=== PATIENT | female | born 1940 | race Caucasian/White ===

== ENCOUNTER 2019-01-28 08:37 | Day surgery (SDC) | payer MEDICARE, BC ==
[2019-01-28] VITALS (8 sets, daily range): BP systolic 112–138; BP diastolic 64–84
[~2019-01-28] VITALS: Ht 172.7 cm; Wt 83.7 kg
[2019-01-28] MEDS ORDERED: normal saline 1000ml 1,000 ML IV PRN (09:05)
[2019-01-28] MEDS ORDERED: BENA10TA74 PO (09:25)
[2019-01-28] MEDS ORDERED: POTA99TA21 (09:25)
[2019-01-28] MEDS ORDERED: ALLO100T PO (09:25)
[2019-01-28] MEDS ORDERED: LEVO137T24 PO (09:25)
[2019-01-28] MEDS ORDERED: CHOL400C8 PO (09:25)
[2019-01-28 09:35] LABS: BASOPHILS # (AUTO) 0.1 X10'3 (0-0.2); BASOPHILS % (AUTO) 0.9 % (0-1); EOSINOPHILS % (AUTO) 0.5 % (0-6); HEMATOCRIT 39.4 % (35.0-45.0); HEMOGLOBIN 13.1 g/dl (12.0-16.0); LYMPHOCYTES # (AUTO) 1.7 X10'3 (1.1-4.8); LYMPHOCYTES % (AUTO) 24.5 % (21-51); MEAN CORPUSCULAR HEMOGLOBIN 31.2 PG (27.0-31.0); MEAN CORPUSCULAR HGB CONC 33.3 g/dL (33.0-36.5); MEAN CORPUSCULAR VOLUME 93.6 FL (78-98); MEAN PLATELET VOLUME 8.4 FL (7.4-10.4); MONOCYTES # (AUTO) 0.5 X10'3 (0-0.9); MONOCYTES % (AUTO) 7.2 % (2-12); NEUTROPHILS # (AUTO) 4.6 X10'3 (1.8-7.7); NEUTROPHILS % (AUTO) 66.9 % (42-75); PLATELET COUNT 208 X10'3 (140-440); RED BLOOD COUNT 4.21 X10'6 (4.20-5.60); RED CELL DISTRIBUTION WIDTH 14.5 % (11.5-14.5); WHITE BLOOD COUNT 6.9 X10'3 (4.5-11.0)
[2019-01-28 09:42] LABS: ALBUMIN 2.8 G/DL (3.4-5.0); ANION GAP 8 (8-16); BLOOD UREA NITROGEN 9 MG/DL (7-18); BUN/CREATININE RATIO 9.8 (6.6-38.0); CALCIUM 9.3 MG/DL (8.5-10.1); CHLORIDE 108 MMOL/L (99-107); CREATININE 0.92 MG/DL (0.40-0.90); GLUCOSE 104 MG/DL (70-104); POTASSIUM 3.3 MMOL/L (3.5-5.1); SODIUM 142 MMOL/L (135-145); TOTAL CARBON DIOXIDE 25.9 MMOL/L (24-32); eGFR 59 ML/MIN
[2019-01-28] MEDS ORDERED: heparin 1,000unit/ml 10ml vial 10 ML ONE (11:05)
[2019-01-28] MEDS ORDERED: heparin 1,000 UNITS/NS 500ml 500 ML ONE ×2 (11:06→13:21)
[2019-01-28] MEDS ORDERED: iohexol 300mg/ml 100ml inj. ONE (11:06)
[2019-01-28] MEDS ORDERED: fentaNYL/PF 50MCG/1 ML 2ML syringe ONE ×5 (11:06→14:07)
[2019-01-28] MEDS ORDERED: midazolam 2 mg/2 ml injection ONE ×5 (11:06→14:07)
[2019-01-28] MEDS ORDERED: nitroGLYCERIN-Tridil 50MG/D5W 250 ML IV ONE (12:41)
[2019-01-28] MEDS ORDERED: verapamil 2.5 mg/ml inj IV ONE (12:43)
[2019-01-28] MEDS ORDERED: normal saline 1000ml 1,000 ML IV SCH (14:31)
== END 2019-01-28 17:15 | disposition home or self-care (01) ==
LOC: SSTAY O 08:37
PROVIDERS: ATTEND Radiology Vascular & Interventional Radiology
DX: K55.1 Chronic vascular disorders of intestine (principal); R10.9 Unspecified abdominal pain; D64.9 Anemia, unspecified; Z79.899 Other long term (current) drug therapy; Z90.710 Acquired absence of both cervix and uterus; Z98.890 Other specified postprocedural states; Z87.891 Personal history of nicotine dependence; R11.0 Nausea
CPT/HCPCS: 36245; 36415; 37184; 75726; 80048; 85025; 85610; C1724; C1760; C1769; C1894; G0269; J1644; J2250; J3010; J7030; Q9967; 99152; 99153; A6213; J3490

== ENCOUNTER 2019-02-04 20:16 | Inpatient (IN) | payer MEDICARE, BC ==
[~2019-02-04] VITALS: Ht 172.7 cm; Wt 84.1 kg
[~2019-02-04 20:16] MED LIST: ALLO100T PO; BENA10TA74 PO; CHOL400C8 PO; LEVO137T24 PO; POTA99TA21
[2019-02-04 20:51] LABS: UA COLLECTION TYPE CLN CATCH MIDSTREAM
[2019-02-04 20:52] LABS: CLARITY,URINE SLIGHTLY CLOUDY (Clear); COLOR,URINE YELLOW (Yellow); GLUCOSE, URINE NEGATIVE (Neg); KETONES,URINE TRACE mg/dl (Neg); LEUKOCYTE ESTERASE ,URINE LARGE (Neg); NITRITES, URINE POSITIVE (Neg); OCCULT BLOOD,URINE NEGATIVE (Neg); PH,URINE 6.5 (4.8-8.0); PROTEIN,URINE NEGATIVE (Neg)
[2019-02-04 20:59] LABS: BACTERIA,URINE 4+ /HPF (Neg); MUCUS STRANDS NONE SEEN /LPF (Neg); RBC,URINE NONE SEEN /HPF (0-2); SQUAMOUS EPITHELIAL CELL,UR FEW /LPF (FEW); WBC,URINE 20-30 /HPF (0-4)
[2019-02-04] MEDS ORDERED: iohexol 350MG/ML 100ml bottle IV ONE (21:22)
[2019-02-04 21:41] LABS: BASOPHILS # (AUTO) 0.1 X10'3 (0-0.2); BASOPHILS % (AUTO) 0.6 % (0-1); EOSINOPHILS % (AUTO) 0.1 % (0-6); HEMATOCRIT 41.5 % (35.0-45.0); LYMPHOCYTES # (AUTO) 2.8 X10'3 (1.1-4.8); LYMPHOCYTES % (AUTO) 19.6 % (21-51); MEAN CORPUSCULAR HEMOGLOBIN 31.3 PG (27.0-31.0); MEAN CORPUSCULAR HGB CONC 33.7 g/dL (33.0-36.5); MEAN CORPUSCULAR VOLUME 92.8 FL (78-98); MEAN PLATELET VOLUME 8.6 FL (7.4-10.4); MONOCYTES # (AUTO) 0.7 X10'3 (0-0.9); MONOCYTES % (AUTO) 5.3 % (2-12); NEUTROPHILS # (AUTO) 10.5 X10'3 (1.8-7.7); NEUTROPHILS % (AUTO) 74.4 % (42-75); PLATELET COUNT 284 X10'3 (140-440); RED BLOOD COUNT 4.47 X10'6 (4.20-5.60); RED CELL DISTRIBUTION WIDTH 14.8 % (11.5-14.5); WHITE BLOOD COUNT 14.1 X10'3 (4.5-11.0)
[2019-02-04 21:53] LABS: ALANINE AMINOTRANSFERASE 18 U/L (12-78); ALBUMIN 3.1 G/DL (3.4-5.0); ALBUMIN/GLOBULIN RATIO 0.7 (1.1-1.5); ALKALINE PHOSPHATASE 151 IU/L (46-116); ANION GAP 12 (8-16); ASPARTATE AMINO TRANSFERASE 9 U/L (10-37); BILIRUBIN,TOTAL 0.7 MG/DL (0.1-1.0); BLOOD UREA NITROGEN 9 MG/DL (7-18); CALCIUM 10.1 MG/DL (8.5-10.1); CHLORIDE 103 MMOL/L (99-107); CREATININE 1.13 MG/DL (0.40-0.90); GLUCOSE 145 MG/DL (70-104); LIPASE < 50 U/L (73-393); POTASSIUM 3.3 MMOL/L (3.5-5.1); SODIUM 140 MMOL/L (135-145); TOTAL CARBON DIOXIDE 24.6 MMOL/L (24-32); TOTAL PROTEIN 7.3 G/DL (6.4-8.2); eGFR 46 ML/MIN
[2019-02-04] MEDS ORDERED: normal saline 1000ML IV soln IVB ONE (22:30)
[2019-02-04] MEDS ORDERED: mag hydrox/Alum hydrox/simeth 30ml oral suspension PO PRN (23:35)
[2019-02-04] MEDS ORDERED: acetaminophen 325mg tablet PO PRN (23:35)
[2019-02-04] MEDS ORDERED: ondansetron/PF 4mg/2ml inj IV PRN (23:35)
[2019-02-04] MEDS ORDERED: magnesium hydroxide 30ml (MOM) UD suspension PO PRN (23:35)
[2019-02-04] MEDS ORDERED: HYDROmorphone 1 mg/ml syringe IV PRN (23:35)
[2019-02-04] MEDS ORDERED: HYDROmorphone inj. 0.5 MG/0.5 ML DISP.SYRIN IV PRN (23:35)
[2019-02-04] MEDS ORDERED: CefTRIAXone/D5W-Rocephin 1gm 50 ML IV ONE (23:40)
[2019-02-05] MEDS: potassium Cl 20mEq in NS 1,000 ML IV SCH ×3 (00:06→19:21)
--- NOTE | 2019-02-05 00:59 | NUR ---
ASSISTED PT TO [facility]. LOOSE STOOL WITH A FEW FORMED PIECES.
--- NOTE | 2019-02-05 02:20 | NUR ---
I have received report from Paige OCAMPO and had the opportunity to ask questions and assume patient care.
[2019-02-05 02:30] VITALS: BP 171/85
[2019-02-05 04:22] LABS: BASOPHILS % (AUTO) 0.2 % (0-1); EOSINOPHILS % (AUTO) 0 % (0-6); HEMATOCRIT 36.8 % (35.0-45.0); HEMOGLOBIN 12.5 g/dl (12.0-16.0); LYMPHOCYTES # (AUTO) 1.8 X10'3 (1.1-4.8); LYMPHOCYTES % (AUTO) 21.6 % (21-51); MEAN CORPUSCULAR HEMOGLOBIN 31.4 PG (27.0-31.0); MEAN CORPUSCULAR VOLUME 92.5 FL (78-98); MEAN PLATELET VOLUME 8.4 FL (7.4-10.4); MONOCYTES # (AUTO) 0.5 X10'3 (0-0.9); MONOCYTES % (AUTO) 5.6 % (2-12); NEUTROPHILS % (AUTO) 72.6 % (42-75); PLATELET COUNT 219 X10'3 (140-440); RED BLOOD COUNT 3.98 X10'6 (4.20-5.60); RED CELL DISTRIBUTION WIDTH 14.2 % (11.5-14.5); WHITE BLOOD COUNT 8.2 X10'3 (4.5-11.0)
[2019-02-05 04:37] LABS: ALANINE AMINOTRANSFERASE 13 U/L (12-78); ALBUMIN 2.6 G/DL (3.4-5.0); ALBUMIN/GLOBULIN RATIO 0.8 (1.1-1.5); ALKALINE PHOSPHATASE 124 IU/L (46-116); ANION GAP 11 (8-16); ASPARTATE AMINO TRANSFERASE 12 U/L (10-37); BILIRUBIN,TOTAL 0.5 MG/DL (0.1-1.0); BLOOD UREA NITROGEN 10 MG/DL (7-18); BUN/CREATININE RATIO 10.3 (6.6-38.0); CALCIUM 8.5 MG/DL (8.5-10.1); CHLORIDE 108 MMOL/L (99-107); CREATININE 0.97 MG/DL (0.40-0.90); GLUCOSE 121 MG/DL (70-104); POTASSIUM 3.3 MMOL/L (3.5-5.1); SODIUM 143 MMOL/L (135-145); TOTAL CARBON DIOXIDE 23.7 MMOL/L (24-32); eGFR 55 ML/MIN
[2019-02-05 06:00] VITALS: BP 170/82
--- NOTE | 2019-02-05 06:46 | NUR ---
Patient in room [facility] 4009. I have received report from Gabriella OCAMPO and had the opportunity to ask questions and assume patient care.
--- NOTE | 2019-02-05 06:47 | NUR ---
Problems reprioritized. Patient report given, questions answered & plan of care reviewed with Keke OCAMPO.
[2019-02-05 10:00] VITALS: BP 149/82
[2019-02-05] MEDS ORDERED: diatrozoate meglu/diatrozoate sod (37% iodine) 120ML oral solution PO ONE (10:20)
--- NOTE | 2019-02-05 11:30 | NUR ---
Malnutrition consult: Pt admit w/ high grade partial SBO w/ mid to distal small bowel enteritis per CT. Pt hx recent atherectomy of SMA per MD note as well as prior past bowel obstructions per pt. Pt NPO w/ R NG in place to suction -205ml output since placement documented but continues to suction contents during RD visit. Pt/family seen by RD; pt reports recent wt loss hx r/t GI DX but unsure of prior wt and exact amount lost. Current wt is pt stated. At this time pt has no edema/wounds, normal strength, no visible signs of malnutrition, and inaccurate wt hx and lacks malnutrition criteria. Will monitor for further GI results and diet advancement per MD. Rec: 1. advance diet per MD to heart healthy 2. monitor for promotility needs once PO 3. weekly wts Addendum: 02/05/19 at [address] Amended: Links added.
--- NOTE | 2019-02-05 11:38 | NUR ---
CONTRAST GIVEN TO PATIENT, PATIENT TOLERATED WELL. NG ON HOLD FOR 2-4 HOURS UNLESS NV OCCUR.
[2019-02-05 18:00] VITALS: BP 139/71
--- NOTE | 2019-02-05 18:42 | NUR ---
Patient in room [facility] 4009. I have received report from DAMARIS Davies and had the opportunity to ask questions and assume patient care.
[2019-02-05 22:00] VITALS: BP 130/66
[2019-02-05] MEDS: CefTRIAXone/D5W-Rocephin 1gm 50 ML IV SCH ×2 (23:55)
[2019-02-06 01:21] VITALS: BP 130/66
[2019-02-06] MEDS: potassium Cl 20mEq in NS 1,000 ML IV SCH (04:51)
[2019-02-06 06:00] VITALS: BP 140/47
--- NOTE | 2019-02-06 06:33 | NUR ---
Problems reprioritized. Patient report given, questions answered & plan of care reviewed with DAMARIS Yu.
--- NOTE | 2019-02-06 06:35 | NUR ---
Patient in room [facility] 4009. I have received report from Sangeetha OACMPO and had the opportunity to ask questions and assume patient care.
[2019-02-06 07:55] LABS: ALANINE AMINOTRANSFERASE 13 U/L (12-78); ALBUMIN 2.4 G/DL (3.4-5.0); ALBUMIN/GLOBULIN RATIO 0.8 (1.1-1.5); ALKALINE PHOSPHATASE 113 IU/L (46-116); ANION GAP 8 (8-16); ASPARTATE AMINO TRANSFERASE 12 U/L (10-37); BILIRUBIN,TOTAL 0.4 MG/DL (0.1-1.0); BLOOD UREA NITROGEN 8 MG/DL (7-18); BUN/CREATININE RATIO 9.6 (6.6-38.0); CALCIUM 8.2 MG/DL (8.5-10.1); CHLORIDE 113 MMOL/L (99-107); CREATININE 0.83 MG/DL (0.40-0.90); GLUCOSE 87 MG/DL (70-104); POTASSIUM 3.3 MMOL/L (3.5-5.1); SODIUM 147 MMOL/L (135-145); TOTAL CARBON DIOXIDE 25.8 MMOL/L (24-32); TOTAL PROTEIN 5.6 G/DL (6.4-8.2); eGFR 66 ML/MIN
[2019-02-06 08:14] LABS: BASOPHILS # (AUTO) 0.1 X10'3 (0-0.2); BASOPHILS % (AUTO) 1.2 % (0-1); EOSINOPHILS % (AUTO) 0.9 % (0-6); HEMOGLOBIN 11.5 g/dl (12.0-16.0); LYMPHOCYTES # (AUTO) 1.3 X10'3 (1.1-4.8); LYMPHOCYTES % (AUTO) 22.7 % (21-51); MEAN CORPUSCULAR HEMOGLOBIN 31.8 PG (27.0-31.0); MEAN CORPUSCULAR HGB CONC 33.8 g/dL (33.0-36.5); MEAN CORPUSCULAR VOLUME 94.2 FL (78-98); MEAN PLATELET VOLUME 8.6 FL (7.4-10.4); MONOCYTES # (AUTO) 0.5 X10'3 (0-0.9); NEUTROPHILS # (AUTO) 3.8 X10'3 (1.8-7.7); NEUTROPHILS % (AUTO) 67.2 % (42-75); PLATELET COUNT 214 X10'3 (140-440); RED BLOOD COUNT 3.61 X10'6 (4.20-5.60); RED CELL DISTRIBUTION WIDTH 14.9 % (11.5-14.5); WHITE BLOOD COUNT 5.7 X10'3 (4.5-11.0)
[2019-02-06 10:00] VITALS: BP 151/72
--- NOTE | 2019-02-06 11:04 | NUR ---
paged hospitalist [phone] k was 3.3 can protocol be ordered, will continue to monitor
[2019-02-06] MEDS ORDERED: potassium Cl 20 mEq SR tablet PO PRN ×2 (11:55)
--- NOTE | 2019-02-06 15:21 | NUR ---
Patient discharged to home with family, all belongings sent with patient and family, patient stable upon discharged
== END 2019-02-06 15:20 | disposition home or self-care (01) | DRG 683 ==
LOC: ER 20:16 → ORTHO 4S 02-05 01:14 → CMPBEDREQ 02-05 01:45
PROVIDERS: ADMIT Internal Medicine; ATTEND Family Medicine
PROC: B4201ZZ Computerized Tomography (CT Scan) of Abdominal Aorta using Low Osmolar Contrast (ICD-10-PCS; principal; 2019-02-04)
PROC: B4241ZZ Computerized Tomography (CT Scan) of Superior Mesenteric Artery using Low Osmolar Contrast (ICD-10-PCS; 2019-02-04)
PROC: B4281ZZ Computerized Tomography (CT Scan) of Bilateral Renal Arteries using Low Osmolar Contrast (ICD-10-PCS; 2019-02-04)
PROC: B42C1ZZ Computerized Tomography (CT Scan) of Pelvic Arteries using Low Osmolar Contrast (ICD-10-PCS; 2019-02-04)
PROC: B4211ZZ Computerized Tomography (CT Scan) of Celiac Artery using Low Osmolar Contrast (ICD-10-PCS; 2019-02-04)
PROC: 0D9670Z Drainage of Stomach with Drainage Device, Via Natural or Artificial Opening (ICD-10-PCS; 2019-02-04)
DX: N17.9 Acute kidney failure, unspecified (principal); K56.51 Intestinal adhesions [bands], with partial obstruction; E87.1 Hypo-osmolality and hyponatremia; D64.9 Anemia, unspecified; E87.6 Hypokalemia; I10 Essential (primary) hypertension; E03.9 Hypothyroidism, unspecified; Z79.890 Hormone replacement therapy; Z79.899 Other long term (current) drug therapy; Z87.891 Personal history of nicotine dependence; Z90.710 Acquired absence of both cervix and uterus
CPT/HCPCS: 36415; 74174; 74176; 80053; 81001; 83605; 83690; 84145; 84484; 85025; 87040; 87077; 87081; 87088; 87186; 93005; 96361; 96365; 96368; 99285; G0378; J0696; J3480; Q9963; Q9967